=== PATIENT | female | born 1965 | race Caucasian/White ===

== ENCOUNTER 2016-05-10 15:25 | Outpatient (CLI) | payer MEDICARE, MEDICAID | END 2016-05-10 15:26 | disposition home or self-care (01) | LOC: BURLAB 15:25 | PROVIDERS: ATTEND Internal Medicine Infectious Disease | DX: Z21 Asymptomatic human immunodeficiency virus [HIV] infection status (principal); B18.2 Chronic viral hepatitis C | CPT/HCPCS: 36415; 85048; 86361; 87522; 87536 ==

== ENCOUNTER 2020-10-23 07:19 | Inpatient (IN) | payer MEDICARE, MEDICAID ==
[2020-10-23 07:51] LABS: #Basophils 0.1 thou/uL (0.0-0.2); #Eosinphils 0.1 thou/uL (0.0-0.7); #Lymphocytes 1.6 thou/uL (1.20-3.40); #Neutrophils 9.7 thou/uL (1.40-6.50); %Basophils 0.8 % (0.0-1.0); %Lymphocytes 12.7 % (21.0-51.0); %Monocytes 8.1 % (0.0-10.0); %Neutrophils 77.4 % (42.0-75.0); Hemoglobin 13.1 g/dL (12.0-16.0); Mean Corpuscular HGB CONC 33.9 g/dL (32.0-36.0); Mean Corpuscular Hemoglobin 32.9 pg (27.0-31.0); Mean Platelet Volume 7.2 fL (7.4-10.4); Platelet Count 212 thou/uL (130-400); Red Blood Cell (RBC) Count 3.97 mill/uL (4.20-5.40); White Blood Cell (WBC) Count 12.5 thou/uL (4.8-10.8)
[2020-10-23] MEDS ORDERED: Glycopyrrolate 0.4 MG/ 2 ML VIAL ONE (07:52)
[2020-10-23] MEDS ORDERED: Ondansetron PF 4 MG/2 ML Vial ONE (07:52)
[2020-10-23] MEDS ORDERED: Famotidine In NaCl 20 mg/50 ml Premix Bag ONE (07:53)
[2020-10-23] MEDS ORDERED: Albuterol Sulfate 2.5 mg/0.5 ml Neb ONE (07:53)
[2020-10-23] MEDS ORDERED: cefTRIAXone\\ROCEPHIN 2 GM VIAL ONE (07:56)
[2020-10-23] MEDS ORDERED: Albuterol Sulfate 2.5 mg/3 ml Neb NEB SCH (08:00)
[2020-10-23 08:07] LABS: ALT (SGPT) 25 U/L (8-55); AST (SGOT) 18 U/L (5-34); Albumin 3.9 g/dL (3.5-5.0); Alkaline Phosphatase 223 U/L (40-110); Anion Gap 16 mmol/L (10-20); BUN (Urea Nitrogen) 9 mg/dL (9.8-20.1); Bilirubin, Total 0.5 mg/dL (0.2-1.2); Calc. Creatinine Clearance 0 mL/min (70-130); Carbon Dioxide 19 mmol/L (22-29); Chloride 102 mmol/L (98-107); Globulin 4.8 g/dL (2.4-3.5); Glucose 220 mg/dL (70-105); Potassium 4.6 mmol/L (3.5-5.1); Protein, Total 8.7 g/dL (6.0-8.3); Sodium 132 mmol/L (136-145)
[2020-10-23] MEDS ORDERED: Acetaminophen 500 MG TAB ONE (08:39)
[2020-10-23 09:13] LABS: Bilirubin Negative (Negative); Blood, Urine Negative (Negative); Clarity Clear (Clear); Glucose, Urine (Dipstick) 100 mg/dL (Negative); Ketone, Urine Negative (Negative); Leukocyte Negative (Negative); Nitrite Negative (Negative); Protein, Urine (Dipstick) Trace mg/dL (Neg-Trace); Urobilinogen 0.2 mg/dL (Less than 2)
[2020-10-23 11:00] LABS: SARS-CoV-2 NAA Rapid Test Not Detected (NotDetected)
[2020-10-23] MEDS ORDERED: Ondansetron ODT 4 MG TAB SL PRN (12:15)
[2020-10-23] MEDS ORDERED: Ondansetron PF 4 MG/2 ML Vial IVP PRN (12:15)
[2020-10-23] MEDS ORDERED: tiZANidine HCl 4 MG TAB PO PRN (12:23)
[2020-10-23] MEDS ORDERED: Insulin Regular 300 UNITS/3 ML VIAL SC PRN ×2 (12:23→17:45)
[2020-10-23] MEDS: Guaifenesin DM 100-10/5 ML UDCUP PO PRN ×2 (15:09→20:46)
[2020-10-23] MEDS: Acetaminophen 500 MG TAB PO PRN ×2 (15:10→23:53)
[2020-10-23] MEDS ORDERED: hydrOXYzine 25 MG TAB PO SCH ×2 (17:00→21:00)
[2020-10-23] MEDS ORDERED: metFORMIN 500 MG TAB PO SCH ×2 (17:00→21:00)
[2020-10-23] MEDS ORDERED: Magnesium 2 GM/50 ML BAG (IN WATER) ONE (17:32)
[2020-10-23] MEDS ORDERED: Azithromycin 500 MG VIAL ONE (17:32)
[2020-10-23] MEDS ORDERED: Aspirin 81 mg Enteric Coated Tablet ONE (17:32)
[2020-10-23] MEDS ORDERED: Dextrose 5% in Water 1,000 ML IV PRN (17:45)
[2020-10-23] MEDS ORDERED: Dextrose 50% Abboject 50 ML SYRINGE IVP PRN (17:45)
[2020-10-23] MEDS: Albuterol Sulfate 2.5 mg/3 ml Neb NEB PRN ×2 (18:16→23:55)
[2020-10-23] MEDS: HumaLOG 300 UNITS/3 ML VIAL SC PRN ×2 (18:34→21:04)
[2020-10-23] MEDS: Efavirenz/Emtricitab/Tenofovir [Atripla] PO SCH (20:37)
[2020-10-23] MEDS: AMITRIPTYLINE HCL 150 MG PO SCH (20:37)
[2020-10-23] MEDS: hydrOXYzine 25 MG TAB PO SCH (20:41)
[2020-10-23] MEDS ORDERED: Non-Formulary Item 1 EACH (Trazodone Hcl [Trazodone Hcl] 100 MG Tablet) PO SCH (21:00)
[2020-10-23] MEDS ORDERED: traZODone HCl 50 MG TAB PO SCH (21:00)
[2020-10-23] MEDS ORDERED: TENOFOVIR PO SCH (21:00)
[2020-10-23] MEDS ORDERED: AMITRIPTYLINE HCL 75 MG PO SCH (21:00)
[2020-10-23] MEDS ORDERED: EMTRICITAB PO SCH (21:00)
[2020-10-23] MEDS ORDERED: Amitriptyline HCl 25 MG TAB PO SCH (21:00)
[2020-10-23] MEDS ORDERED: EFAVIRENZ PO SCH (21:00)
[2020-10-24 05:17] LABS: Anion Gap 12 mmol/L (10-20)
[2020-10-24 05:27] LABS: ALT (SGPT) 20 U/L (8-55); AST (SGOT) 15 U/L (5-34); Alkaline Phosphatase 172 U/L (40-110); BUN (Urea Nitrogen) 10 mg/dL (9.8-20.1); Bilirubin, Total 0.2 mg/dL (0.2-1.2); Calc. Creatinine Clearance 123 mL/min (70-130); Calcium 9.2 mg/dL (7.8-10.44); Carbon Dioxide 20 mmol/L (22-29); Chloride 110 mmol/L (98-107); Globulin 3.6 g/dL (2.4-3.5); Glucose 197 mg/dL (70-105); Potassium 3.9 mmol/L (3.5-5.1); Protein, Total 6.6 g/dL (6.0-8.3); Sodium 138 mmol/L (136-145)
[2020-10-24 05:33] LABS: #Basophils 0.1 thou/uL (0.0-0.2); #Eosinphils 0.1 thou/uL (0.0-0.7); #Lymphocytes 1.2 thou/uL (1.20-3.40); #Monocytes 0.5 thou/uL (0.11-0.59); #Neutrophils 4.3 thou/uL (1.40-6.50); %Basophils 0.9 % (0.0-1.0); %Eosinophils 1.7 % (0.0-10.0); %Lymphocytes 19.9 % (21.0-51.0); %Monocytes 8.7 % (0.0-10.0); %Neutrophils 68.8 % (42.0-75.0); Hemoglobin 10.8 g/dL (12.0-16.0); Mean Corpuscular HGB CONC 38.2 g/dL (32.0-36.0); Mean Corpuscular Hemoglobin 37.3 pg (27.0-31.0); Mean Corpuscular Volume 97.7 fL (78.0-98.0); Mean Platelet Volume 6.7 fL (7.4-10.4); Platelet Count 147 thou/uL (130-400); Red Blood Cell (RBC) Count 2.89 mill/uL (4.20-5.40); White Blood Cell (WBC) Count 6.2 thou/uL (4.8-10.8)
[2020-10-24] MEDS: hydrOXYzine 25 MG TAB PO SCH ×3 (05:47→21:20)
[2020-10-24] MEDS: Albuterol Sulfate 2.5 mg/3 ml Neb NEB PRN ×3 (05:49→18:51)
[2020-10-24 06:04] LABS: Platelet Morphology Comment Appears Adequate; RBC Morphology Normal
[2020-10-24] MEDS: Enoxaparin Sodium 40 MG/0.4 ML SYRINGE SC SCH (08:40)
[2020-10-24] MEDS: cefTRIAXone\\ROCEPHIN 1 GM in Sodium Chloride 0.9% 100 ML IVPB SCH (08:41)
[2020-10-24] MEDS: Aripiprazole 15 MG TAB PO SCH (08:42)
[2020-10-24] MEDS: Lisinopril 20 MG TAB PO SCH (08:43)
[2020-10-24] MEDS: Spironolactone 25 MG TAB PO SCH (08:44)
[2020-10-24] MEDS: HumaLOG 300 UNITS/3 ML VIAL SC PRN ×3 (08:45→17:22)
[2020-10-24] MEDS ORDERED: Lisinopril 20 MG TAB PO SCH (09:00)
[2020-10-24] MEDS ORDERED: Aripiprazole 10 MG TAB PO SCH (09:00)
[2020-10-24] MEDS ORDERED: BEER 1 CAN PO SCH ×2 (09:00→17:00)
[2020-10-24] MEDS ORDERED: ARIPIPRAZOLE 15 MG PO SCH (09:00)
[2020-10-24] MEDS ORDERED: Non-Formulary Item 1 EACH (Lactulose 10 Gm/15ml Oral Sol 10 GM/15 ML Ml) PO SCH (09:00)
[2020-10-24] MEDS ORDERED: metFORMIN 500 MG TAB PO SCH (09:00)
[2020-10-24] MEDS ORDERED: Spironolactone 25 MG TAB PO SCH (09:00)
[2020-10-24] MEDS: Azithromycin 500 MG in Sodium Chloride 0.9% 250 ML 250 ML IVPB SCH (10:07)
[2020-10-24] MEDS ORDERED: Prevnar 13-Val Conj/PF 0.5 ML SYRINGE IM ONE (12:15)
[2020-10-24 14:12] VITALS: BMI 32.0
[2020-10-24] MEDS: metFORMIN 500 MG TAB PO SCH (17:18)
[2020-10-24] MEDS: AMITRIPTYLINE HCL 150 MG PO SCH (21:19)
[2020-10-24] MEDS: Efavirenz/Emtricitab/Tenofovir [Atripla] PO SCH (21:19)
[2020-10-24] MEDS: Guaifenesin DM 100-10/5 ML UDCUP PO PRN (23:47)
[2020-10-25] MEDS: Albuterol Sulfate 2.5 mg/3 ml Neb NEB PRN ×2 (04:14→12:58)
[2020-10-25 05:42] LABS: #Eosinphils 0.1 thou/uL (0.0-0.7); #Monocytes 0.4 thou/uL (0.11-0.59); #Neutrophils 4.1 thou/uL (1.40-6.50); %Basophils 0.8 % (0.0-1.0); %Eosinophils 1.7 % (0.0-10.0); %Lymphocytes 17.5 % (21.0-51.0); %Monocytes 7.1 % (0.0-10.0); %Neutrophils 72.8 % (42.0-75.0); Hemoglobin 11.8 g/dL (12.0-16.0); Mean Corpuscular HGB CONC 33.6 g/dL (32.0-36.0); Mean Corpuscular Hemoglobin 32.9 pg (27.0-31.0); Mean Corpuscular Volume 97.9 fL (78.0-98.0); Mean Platelet Volume 6.5 fL (7.4-10.4); Platelet Count 134 thou/uL (130-400); RBC Distribution Width 12.8 % (11.5-14.5); Red Blood Cell (RBC) Count 3.58 mill/uL (4.20-5.40); White Blood Cell (WBC) Count 5.7 thou/uL (4.8-10.8)
[2020-10-25 06:02] LABS: ALT (SGPT) 24 U/L (8-55); AST (SGOT) 24 U/L (5-34); Albumin 3.3 g/dL (3.5-5.0); Alkaline Phosphatase 192 U/L (40-110); Anion Gap 14 mmol/L (10-20); BUN (Urea Nitrogen) 8 mg/dL (9.8-20.1); Bilirubin, Total 0.3 mg/dL (0.2-1.2); Calc. Creatinine Clearance 120 mL/min (70-130); Calcium 9.8 mg/dL (7.8-10.44); Carbon Dioxide 19 mmol/L (22-29); Chloride 107 mmol/L (98-107); Globulin 3.9 g/dL (2.4-3.5); Glucose 218 mg/dL (70-105); Potassium 3.9 mmol/L (3.5-5.1); Protein, Total 7.2 g/dL (6.0-8.3); Sodium 136 mmol/L (136-145)
[2020-10-25] MEDS: hydrOXYzine 25 MG TAB PO SCH (06:27)
[2020-10-25 06:42] VITALS: BP 156/89; TEMP 98.4
[2020-10-25] MEDS: HumaLOG 300 UNITS/3 ML VIAL SC PRN (07:51)
[2020-10-25] MEDS: cefTRIAXone\\ROCEPHIN 1 GM in Sodium Chloride 0.9% 100 ML IVPB SCH (07:56)
[2020-10-25] MEDS: Lisinopril 20 MG TAB PO SCH (08:32)
[2020-10-25] MEDS: metFORMIN 500 MG TAB PO SCH (08:33)
[2020-10-25] MEDS: Spironolactone 25 MG TAB PO SCH (08:33)
[2020-10-25] MEDS: Aripiprazole 15 MG TAB PO SCH (08:33)
[2020-10-25] MEDS: Enoxaparin Sodium 40 MG/0.4 ML SYRINGE SC SCH (08:34)
[2020-10-25] MEDS: Azithromycin 500 MG in Sodium Chloride 0.9% 250 ML 250 ML IVPB SCH (11:25)
== END 2020-10-25 13:30 | disposition home or self-care (01) | DRG 975 ==
LOC: BURERS 07:19 → BURMED 09:51
PROVIDERS: ADMIT Family Medicine; ATTEND Family Medicine
DX: J18.9 Pneumonia, unspecified organism (principal); E87.1 Hypo-osmolality and hyponatremia; B20 Human immunodeficiency virus [HIV] disease; E11.9 Type 2 diabetes mellitus without complications; F41.9 Anxiety disorder, unspecified; I10 Essential (primary) hypertension; Z20.822 Contact with and (suspected) exposure to COVID-19; F31.9 Bipolar disorder, unspecified; Z90.89 Acquired absence of other organs; Z98.890 Other specified postprocedural states; Z79.4 Long term (current) use of insulin; Z79.899 Other long term (current) drug therapy
CPT/HCPCS: 0240U; 36415; 36416; 71045; 80053; 81003; 83605; 83690; 83880; 84484; 85025; 87040; 87070; 87205; 93005; 94640; 96365; 96367; 96368; 96375; J0456; J0696; J1650; J1815; J2405; J3475; J3490; J7050; J7611; J7620; Q0162

== ENCOUNTER 2021-09-27 18:10 | Emergency (ER) | payer MEDICARE, MEDICAID ==
[2021-09-27 19:12] LABS: #Basophils 0.2 thou/uL (0.0-0.2); #Lymphocytes 0.4 thou/uL (1.20-3.40); #Monocytes 1.4 thou/uL (0.11-0.59); #Neutrophils 12.7 thou/uL (1.40-6.50); %Basophils 1.1 % (0.0-1.0); %Monocytes 9.5 % (0.0-10.0); %Neutrophils 86.4 % (42.0-75.0); Hemoglobin 12.5 g/dL (12.0-16.0); Mean Corpuscular HGB CONC 34.7 g/dL (32.0-36.0); Mean Corpuscular Hemoglobin 32.9 pg (27.0-31.0); Mean Corpuscular Volume 94.8 fL (78.0-98.0); Mean Platelet Volume 8.7 fL (7.4-10.4); Platelet Count 131 thou/uL (130-400); RBC Distribution Width 12.5 % (11.5-14.5); Red Blood Cell (RBC) Count 3.81 mill/uL (4.20-5.40); White Blood Cell (WBC) Count 14.7 thou/uL (4.8-10.8)
[2021-09-27] MEDS ORDERED: Cefepime 1 GM VIAL ONE (19:21)
[2021-09-27] MEDS ORDERED: Acetaminophen 500 MG TAB ONE (19:21)
[2021-09-27 19:29] LABS: ALT (SGPT) 20 U/L (8-55); AST (SGOT) 17 U/L (5-34); Albumin 3.6 g/dL (3.5-5.0); Alkaline Phosphatase 118 U/L (40-110); Anion Gap 18 mmol/L (10-20); BUN (Urea Nitrogen) 54 mg/dL (9.8-20.1); Bilirubin, Total 1.3 mg/dL (0.2-1.2); Calc. Creatinine Clearance 0 mL/min (70-130); Calcium 10.7 mg/dL (7.8-10.44); Carbon Dioxide 15 mmol/L (22-29); Chloride 96 mmol/L (98-107); Globulin 4.3 g/dL (2.4-3.5); Glucose 354 mg/dL (70-105); Lipase 41 U/L (8-78); Potassium 3.3 mmol/L (3.5-5.1); Protein, Total 7.9 g/dL (6.0-8.3); Sodium 126 mmol/L (136-145)
[2021-09-27 20:21] LABS: Bilirubin Small (Negative); Blood, Urine Trace (Negative); Clarity Cloudy (Clear); Glucose, Urine (Dipstick) 500 mg/dL (Negative); Ketone, Urine Trace mg/dL (Negative); Leukocyte Trace (Negative); Nitrite Negative (Negative); Protein, Urine (Dipstick) 100 mg/dL (Neg-Trace); Specific Gravity, Urine 1.015 (1.005-1.030)
[2021-09-27 20:23] LABS: RBC/HPF 0-3 HPF (0-3)
[2021-09-27 20:24] LABS: Bacteria/HPF 4+ HPF (None Seen); Mucous/LPF 1+ LPF (<2+); Squamous Epithelial 0-3 HPF (0-3); WBC/HPF Greater Than 50 HPF (0-3)
== END 2021-09-27 23:40 | disposition short-term general hospital (02) ==
LOC: BURERS 18:10
DX: A41.9 Sepsis, unspecified organism (principal); R65.20 Severe sepsis without septic shock; N17.9 Acute kidney failure, unspecified; N39.0 Urinary tract infection, site not specified; E11.9 Type 2 diabetes mellitus without complications; I10 Essential (primary) hypertension; Z79.4 Long term (current) use of insulin; Z21 Asymptomatic human immunodeficiency virus [HIV] infection status; Z87.891 Personal history of nicotine dependence
CPT/HCPCS: 71045; 80053; 81003; 81015; 83605; 83690; 83880; 84484; 85025; 87040; 87077; 87086; 87149; 87186; 87804; 93005; 96361; 96365; J0692

== ENCOUNTER 2022-07-26 12:32 | Emergency (ER) | payer OTHER, MEDICAID ==
[2022-07-26 13:12] LABS: #Basophils 0.1 thou/uL (0.0-0.2); #Eosinphils 0.1 thou/uL (0.0-0.7); #Lymphocytes 1.5 thou/uL (1.20-3.40); #Monocytes 0.7 thou/uL (0.11-0.59); #Neutrophils 5.5 thou/uL (1.40-6.50); %Basophils 0.8 % (0.0-1.0); %Eosinophils 1.2 % (0.0-10.0); %Lymphocytes 19.2 % (21.0-51.0); %Monocytes 9.3 % (0.0-10.0); %Neutrophils 69.5 % (42.0-75.0); Hemoglobin 12.3 g/dL (12.0-16.0); Mean Corpuscular HGB CONC 32.5 g/dL (32.0-36.0); Mean Corpuscular Hemoglobin 32.6 pg (27.0-31.0); Mean Platelet Volume 7.4 fL (7.4-10.4); Platelet Count 158 10x3/uL (130-400); RBC Distribution Width 12.8 % (11.5-14.5); Red Blood Cell (RBC) Count 3.78 mill/uL (4.20-5.40)
[2022-07-26] MEDS ORDERED: Ketorolac Tromethamine 30 MG/ML VIAL ONE (13:25)
[2022-07-26 13:27] LABS: ALT (SGPT) 79 U/L (8-55); AST (SGOT) 60 U/L (5-34); Alcohol Less than 10 mg/dL (Less than 10); Alkaline Phosphatase 106 U/L (40-110); Anion Gap 15 mmol/L (10-20); BUN (Urea Nitrogen) 61 mg/dL (9.8-20.1); Bilirubin, Total 0.8 mg/dL (0.2-1.2); Calc. Creatinine Clearance 0 mL/min (70-130); Carbon Dioxide 19 mmol/L (22-29); Chloride 100 mmol/L (98-107); Estimated GFR 20; Globulin 3.4 g/dL (2.4-3.5); Glucose 176 mg/dL (70-105); Potassium 3.4 mmol/L (3.5-5.1); Protein, Total 7.4 g/dL (6.0-8.3); Sodium 131 mmol/L (136-145)
== END 2022-07-26 15:48 | disposition home or self-care (01) ==
LOC: BURERS 12:32
DX: S39.012A Strain of muscle, fascia and tendon of lower back, initial encounter (principal); E11.9 Type 2 diabetes mellitus without complications; I10 Essential (primary) hypertension; F17.200 Nicotine dependence, unspecified, uncomplicated; X50.0XXA Overexertion from strenuous movement or load, initial encounter; Z79.899 Other long term (current) drug therapy; Z79.84 Long term (current) use of oral hypoglycemic drugs
CPT/HCPCS: 80053; 80307; 85025; 96374; J1885

== ENCOUNTER 2023-10-03 12:53 | Emergency (ER) | payer MEDICAID, MEDICARE ==
[2023-10-03 13:19] LABS: #Basophils 0.5 thou/uL (0.0-0.2); #Eosinphils 0.1 thou/uL (0.0-0.7); #Lymphocytes 3.5 thou/uL (1.20-3.40); #Monocytes 1.8 thou/uL (0.11-0.59); #Neutrophils 13.7 thou/uL (1.40-6.50); %Basophils 2.4 % (0.0-1.0); %Eosinophils 0.6 % (0.0-10.0); %Lymphocytes 17.8 % (21.0-51.0); %Neutrophils 70.2 % (42.0-75.0); Hematocrit 19.5 % (36.0-47.0); Hemoglobin 6.1 g/dL (12.0-16.0); Mean Corpuscular HGB CONC 31.4 g/dL (32.0-36.0); Mean Corpuscular Hemoglobin 32.5 pg (27.0-31.0); Mean Platelet Volume 7.3 fL (7.4-10.4); Platelet Count 186 10x3/uL (130-400); RBC Distribution Width 15.3 % (11.5-14.5); Red Blood Cell (RBC) Count 1.89 mill/uL (4.20-5.40); White Blood Cell (WBC) Count 19.5 10x3/uL (4.8-10.8)
[2023-10-03 13:28] LABS: INR-International Normal Ratio 1.4; Prothrombin Time 16.9 sec (12.0-14.7)
[2023-10-03] MEDS ORDERED: Pantoprazole 40 MG VIAL ONE ×2 (13:28→13:33)
[2023-10-03] MEDS ORDERED: Ondansetron PF 4 MG/2 ML Vial ONE (13:28)
[2023-10-03 13:29] LABS: PTT 25.1 sec (22.9-36.1)
[2023-10-03 13:37] LABS: ALT (SGPT) 30 U/L (8-55); AST (SGOT) 49 U/L (5-34); Albumin 2.5 g/dL (3.5-5.0); Alkaline Phosphatase 175 U/L (40-110); Anion Gap 22 mmol/L (10-20); BUN (Urea Nitrogen) 30 mg/dL (9.8-20.1); Bilirubin, Total 0.6 mg/dL (0.2-1.2); Calc. Creatinine Clearance 0 mL/min (70-130); Calcium 8.8 mg/dL (7.8-10.44); Carbon Dioxide 11 mmol/L (22-29); Chloride 102 mmol/L (98-107); Estimated GFR 66; Globulin 3.4 g/dL (2.4-3.5); Potassium 4.8 mmol/L (3.5-5.1); Protein, Total 5.9 g/dL (6.0-8.3); Sodium 130 mmol/L (136-145)
[2023-10-03 13:38] LABS: Troponin I Less than 0.010 ng/mL (< 0.028)
[2023-10-03 13:40] LABS: Glucose 418 mg/dL (70-105)
[2023-10-03] MEDS ORDERED: Sodium Chloride 0.9% 100 ML ONE (13:51)
[2023-10-03] MEDS ORDERED: Piperacillin/Tazobactam 4.5 GM VIAL ONE (13:51)
[2023-10-03] MEDS ORDERED: fentaNYL 50 mcg/mL 1 mL Vial ONE ×2 (14:15→14:54)
[2023-10-03] MEDS ORDERED: Tranexamic Acid 1,000 MG/10 ML VIAL ONE (14:54)
[2023-10-03] MEDS ORDERED: Magnesium 2 GM/50 ML BAG (IN WATER) ONE (14:55)
[2023-10-03 16:15] LABS: Lactic Acid 1.6 mmol/L (0.5-2.2)
[2023-10-03 16:26] LABS: Iron 38 ug/dL (50-170); Iron Binding Capacity, Total 283 mcg/dL (265-497)
[2023-10-03 20:12] LABS: Actual Bicarbonate (HCO3v) 16.7 mEq/L (22-28); Base Excess -7.7 mEq/L (-2.0 to +3.0); Chloride (VBG) 105 mmol/L (98-106); Hematocrit-VBG 23 % (36.0-47.0); Hemoglobin (Hb) 7.7 g/dL (11.7-16.0); Potassium (VBG) 4.26 mmol/L (3.70-5.30); Sodium 137 mmol/L (133-146); pH (venous) 7.377 (7.32-7.43)
== END 2023-10-03 16:17 | disposition short-term general hospital (02) ==
LOC: BURERS 12:53
DX: K92.2 Gastrointestinal hemorrhage, unspecified (principal); E11.10 Type 2 diabetes mellitus with ketoacidosis without coma; R65.21 Severe sepsis with septic shock; K74.60 Unspecified cirrhosis of liver; I11.9 Hypertensive heart disease without heart failure; I44.7 Left bundle-branch block, unspecified; D62 Acute posthemorrhagic anemia; R06.02 Shortness of breath; B20 Human immunodeficiency virus [HIV] disease; F17.200 Nicotine dependence, unspecified, uncomplicated; Z79.4 Long term (current) use of insulin
CPT/HCPCS: 36430; 71045; 74174; 80053; 82728; 82805; 83540; 83550; 83605; 84484; 85025; 85610; 85730; 86850; 86900; 86901; 86920; 87040; 93005; 94760; 96365; 96366; 96368; 96375; 96376; 99285; C9113; J2405; J2543; J3010; J3475; J3490; P9016; 36415; 82274